=== PATIENT | female | born 1995 | race Caucasian/White ===

== ENCOUNTER 2019-08-07 09:23 | Outpatient (CLI) | payer OTHER ==
[2019-08-07 11:05] LABS: APPEARANCE,URINE SLIGHTLY-CLOUDY; BILIRUBIN,URINE NEGATIVE (NEGATIVE); COLOR,URINE YELLOW; GLUCOSE, URINE NEGATIVE (NEGATIVE); KETONES,URINE NEGATIVE (NEGATIVE); LEUKOCYTE ESTERASE,URINE TRACE (NEGATIVE); NITRITE,URINE NEGATIVE (NEGATIVE); PROTEIN,URINE NEGATIVE (NEGATIVE); URINE SPECIFIC GRAVITY 1.016; UROBILINOGEN,URINE NEGATIVE mg/dL (<2.0)
[2019-08-07 11:15] LABS: URINE AMPHETAMINES SCREEN NEGATIVE; URINE BARBITURATES SCREEN NEGATIVE; URINE BENZODIAZEPINES SCREEN NEGATIVE; URINE COCAINE SCREEN NEGATIVE; URINE MARIJUANA (THC) SCREEN NEGATIVE; URINE METHADONE SCREEN NEGATIVE; URINE PHENCYCLIDINE SCREEN NEGATIVE
--- NOTE | 2019-08-07 11:48 | RADIOLOGY REPORT (SQ) ---
EXAM DESCRIPTION: U/S OB LIMITED IMAGES COMPLETED DATE/TIME: 08/07/2019 11:29 am REASON FOR STUDY: pt fell on abd yesterday COMPARISON: None. TECHNIQUE: Limited transabdominal grayscale ultrasound for evaluation of specific requested obstetri jacqueline parameters. LIMITATIONS: None. FINDINGS: CERVICAL LENGTH: Closed, 3.5 cm in length GRIS: Largest volume pocket 11.5 x 4.9 cm FHR: 140 beats per minute. PRESENTATION: Transverse PLACENTA: Anterior grade 1 ANATOMY: Not assessed OTHER: Estimated gestational age by limited measurements, 23 weeks 0 days, estimated due date 12/04/19 IMPRESSION: LIMITED OBSTETRICAL ULTRASOUND WITH MEASURED PARAMETERS DELINEATED ABOVE. Trimester of : Second trimester - 13 weeks 1 day to 27 weeks 6 days. TECHNICAL DOCUMENTATION: JOB ID: [id number] 2010 [employer]- All Rights Reserved Reading location - IP/workstation name: [email or web address]
== END 2019-08-07 12:13 | disposition home or self-care (01) ==
LOC: LC 09:23
PROVIDERS: ATTEND Obstetrics & Gynecology
DX: O36.8120 Decreased fetal movements, second trimester, not applicable or unspecified (principal); O9A.212 Injury, poisoning and certain other consequences of external causes complicating pregnancy, second trimester; W19.XXXA Unspecified fall, initial encounter; Z3A.22 22 weeks gestation of pregnancy
CPT/HCPCS: 76815; 80307; 81001

== ENCOUNTER 2019-10-16 13:07 | Observation (INO) | payer BC ==
[2019-10-16 13:53] LABS: APPEARANCE,URINE SLIGHTLY-CLOUDY; BILIRUBIN,URINE NEGATIVE (NEGATIVE); COLOR,URINE YELLOW; GLUCOSE, URINE NEGATIVE (NEGATIVE); KETONES,URINE NEGATIVE (NEGATIVE); LEUKOCYTE ESTERASE,URINE SMALL (NEGATIVE); NITRITE,URINE NEGATIVE (NEGATIVE); PROTEIN,URINE 30 mg/dL (NEGATIVE); URINE SPECIFIC GRAVITY 1.019; UROBILINOGEN,URINE NEGATIVE mg/dL (<2.0)
[2019-10-16 13:54] LABS: BACTERIA (WET MOUNT) 3+ BACTERIA SEEN; EPITHELIALS (WET MOUNT) 3+ EPITHELIALS SEEN; RBCS (WET MOUNT) FEW RBCS SEEN; T.VAGINALIS (WET MOUNT) NO TRICHOMONAS SEEN; WBCS (WET MOUNT) 3+ WBCS SEEN; YEAST (WET MOUNT) NO YEAST SEEN
[2019-10-16 14:12] LABS: URINE AMPHETAMINES SCREEN NEGATIVE; URINE BARBITURATES SCREEN NEGATIVE; URINE BENZODIAZEPINES SCREEN NEGATIVE; URINE COCAINE SCREEN NEGATIVE; URINE MARIJUANA (THC) SCREEN NEGATIVE; URINE METHADONE SCREEN NEGATIVE; URINE PHENCYCLIDINE SCREEN NEGATIVE
[2019-10-16] MEDS ORDERED: RINGERS SOLUTION,LACTATED 1,000 ML IV PRN ×2 (14:37→17:54)
[2019-10-16 15:22] LABS: CHLAM PCR NOT DETECTED (NOT DETECT)
[2019-10-16] MEDS ORDERED: BETAMET ACET/BETAMET NA INJ 6 MG/1 ML ONE (17:16)
[2019-10-16] MEDS ORDERED: BETAMET ACET/BETAMET NA INJ 6 MG/1 ML IM ONE (17:30)
[2019-10-16] MEDS ORDERED: HYDROXYZINE PAMOATE 50 MG CAPSULE PO PRN (17:30)
[2019-10-16] MEDS ORDERED: DEXTROSE 5%-LACTATED RINGERS 1,000 ML IV PRN (17:37)
[2019-10-16] MEDS ORDERED: NIFEDIPINE 30 MG TAB.ER.24 PO ONE ×2 (17:59→18:00)
--- NOTE | 2019-10-16 18:17 | Non Stress Test Report ---
Non Stress Test Datetime Report Generated by CPN: 10/16/2019 18:17 DEMOGRAPHIC EGA NST: 32.0 INDICATION Indication for Study (NST) Other: 23 hour obs r/o PTL MONITORING Monitor Explained: Monitor Explained; Test Explained; Patient Verbalized Understanding Time on Monitor: 10/16/2019 17:10 Time off Monitor: 10/16/2019 17:30 NST Duration: 20 NST INTERVENTIONS NST Interventions: PO Hydration Physician Notified NST: Dr Ramesh BABY A: [id number] BABY A Movement : Present Contraction Frequency : 4-6 FHR Baseline : 145 Accelerations : 15X15 Decelerations : None Variability : Moderate 6-25bpm NST Review: Meets Criteria for Reactive NST NST Review and Verified By : B Baidy RN NST Results: Reactive NST COMMENTS NST Comments: MD on unit reviewing FHT strip NST REPORT Report Trigger: Send Report
[2019-10-17] MEDS ORDERED: ACETAMINOPHEN 325 MG TABLET PO ONE ×2 (01:18→11:25)
[2019-10-17] MEDS ORDERED: ACETAMINOPHEN 325 MG TABLET ONE ×3 (01:19→11:29)
[2019-10-17] MEDS ORDERED: NIFEDIPINE 10 MG CAPSULE ONE ×2 (03:34→11:29)
[2019-10-17] MEDS ORDERED: NIFEDIPINE 10 MG CAPSULE PO SCH ×2 (03:45→09:00)
[2019-10-17] MEDS: NIFEDIPINE 10 MG CAPSULE PO SCH ×2 (03:47→11:32)
--- NOTE | 2019-10-17 09:50 | Admission Physical ---
Datetime Report Generated by CPN: 10/17/2019 09:50 CURRENT ADMISSION Chief Complaint: Uterine Contractions Admit Impression : , Intrauterine ; Intact Membranes Admit Plan: Initiate Labor Protocol ALLERGIES Medication Allergies: Yes Medication Allergies: codeine (08/07/2019) Latex: No Latex Allergies Environmental Allergies: none OBSTETRICAL HISTORY EDC: 12/11/2019 00:00 : 3 Para: 1 Term: 1 : 0 SAB: 1 IAB: 0 Ectopic: 0 Livin Cesareans: 0 VBACs: 0 Multiple Births: 0 Gestational Diabetes: No Rh Sensitization: No Incompetent Cervix: No HEATHER: No Infertility: No ART Treatment: No Uterine Anomaly: No IUGR: No Hx Previous C/S: No Macrosomia: No Hx Loss/Stillborn: No PIH: No Hx : No Placenta Previa/Abruption: No Depression/PP Depression: No PTL/PROM: Yes Post Hemorrhage: No Current Procedures: Ultrasound Obstetrical History Comments: 2016 10-12 weeks SAB 2017 36.6 weeks male 6# 12 oz G3- current SEE RECORDS Alcohol: No Marijuana : No Cocaine: No Other Illicit Drugs: No Cigarettes: Never Smoker. [id number] MEDICAL HISTORY Diabetes: No Blood Transfusion: No Pulmonary Disease (Asthma, TB): No Breast Disease: No Hypertension: No Bilingual Spanish Inbound Sales Surgery: No Heart Disease: No Hosp/Surgery: Yes Autoimmune Disorder: No Anesthetic Complications: No Kidney Disease: No Abnormal Pap Smear: No Neuro/Epilepsy: No Psychiatric Disorders: No Other Medical Diseases: No Hepatitis/Liver Disease: No Significant Family History: No Varicosities/Phlebitis: No Trauma/Violence : No Thyroid Dysfunction: No Medical History Comments: childbirth, T_A 2008, wisdom teeth 2016, INFECTIOUS HISTORY Gonorrhea: No Genital Herpes: No Chlamydia: No Tuberculosis: No Syphilis: No Hepatitis: No HIV/AIDS Exposure: No Rash or Viral Illness: No HPV: No PHYSICAL EXAM General: Normal HEENT: Normal Neurologic: Normal Thyroid: Normal Heart: Normal Lungs: Normal Breast: Normal Back: Normal Abdomen: Normal Genitourinary Exam: Normal Extremities: Normal DTRs: Normal Pelvic Type: Adequate Vital Signs: Reviewed; Within Normal Limits VAGINAL EXAM Dilatation: 0 Effacement: 50 Station: -3 Contraction Comments: regular contractions every 3 minutes MEMBRANES Membranes: Intact FETUS A EGA: 32.0 Monitoring: External US FHR- Baseline: 130 Variability: Moderate 6-25bpm Accelerations: 15X15 Decelerations: None FHR Category: Category I Presentation: Vertex Admit Comment: at 32.1 wks EGA with contractions: threatened labor -Admit to LDR for observation and treatment -VS Q 4 hrs while awake -OUt of bed at kris -Regular diet -s/p 1 liter LR IV in triage, bolus one additional liter over next 2 hrs -Betamethasone 12mg IM now and repeat in 24 hrs -No cervical change presently so will wait on PCN for GBS prophylaxis -Obtain GBS cultures, G/C probe -Begin nifedipine 30 xl and continue nifedipine 10mg Q 8 hours. Hold for b/p <90 systolic or <50 diastolic _NST BID -COntinuous toco -Hx of one prior at 36.6 PLANS FOR LABOR AND DELIVERY Labor and Delivery: None Pain Management: Natural Feeding Preference: Breast Benefit of Breast Feed Discussed: Yes Circumcision: Yes INFORMED CONSENT Informed Consent Obtained: Vaginal Delivery; Risks, Benefits and Alternatives Discussed Signature: with User ID: Kathy : with User ID: Kathy
--- NOTE | 2019-10-17 10:26 | Non Stress Test Report ---
Non Stress Test Datetime Report Generated by CPN: 10/17/2019 10:25 DEMOGRAPHIC EGA NST: 32.1 INDICATION Indication for Study (NST) Other: obs pt for ctxs MONITORING Monitor Explained: Monitor Explained; Test Explained; Patient Verbalized Understanding Time on Monitor: 10/17/2019 09:37 Time off Monitor: 10/17/2019 10:06 NST Duration: 29 NST INTERVENTIONS NST Interventions: None Physician Notified NST: Dr Ramesh BABY A Movement : Present Movement : Present Contraction Frequency : rare FHR Baseline : 130 Accelerations : 15X15 Decelerations : None Variability : Moderate 6-25bpm NST Review: Meets Criteria for Reactive NST NST Review: Meets Criteria for Reactive NST NST Review and Verified By : B Baidy RN NST Results: Reactive NST REPORT Report Trigger: Send Report
[2019-10-17] MEDS ORDERED: BETAMET ACET/BETAMET NA INJ 6 MG/1 ML IM ONE (16:00)
[2019-10-17] MEDS ORDERED: BETAMET ACET/BETAMET NA INJ 6 MG/1 ML ONE (16:40)
== END 2019-10-17 17:28 | disposition home or self-care (01) ==
LOC: LC 13:07 → LR 17:34
PROVIDERS: ADMIT Obstetrics & Gynecology; ATTEND Obstetrics & Gynecology
DX: O60.03 Preterm labor without delivery, third trimester (principal); Z3A.32 32 weeks gestation of pregnancy
CPT/HCPCS: 59025; 96372; 87210; 81001; 87081; 80307; 87491; 87591; 84112; G0378 ×2; J3490; J0702 ×2

== ENCOUNTER 2019-10-22 13:56 | Observation (INO) | payer BC ==
[2019-10-22 14:43] LABS: APPEARANCE,URINE SLIGHTLY-CLOUDY; BILIRUBIN,URINE NEGATIVE (NEGATIVE); COLOR,URINE YELLOW; GLUCOSE, URINE NEGATIVE (NEGATIVE); KETONES,URINE NEGATIVE (NEGATIVE); LEUKOCYTE ESTERASE,URINE SMALL (NEGATIVE); NITRITE,URINE NEGATIVE (NEGATIVE); PROTEIN,URINE NEGATIVE (NEGATIVE); URINE SPECIFIC GRAVITY 1.004; UROBILINOGEN,URINE NEGATIVE mg/dL (<2.0)
[2019-10-22 15:14] LABS: URINE AMPHETAMINES SCREEN NEGATIVE; URINE BARBITURATES SCREEN NEGATIVE; URINE BENZODIAZEPINES SCREEN NEGATIVE; URINE COCAINE SCREEN NEGATIVE; URINE MARIJUANA (THC) SCREEN NEGATIVE; URINE METHADONE SCREEN NEGATIVE; URINE PHENCYCLIDINE SCREEN NEGATIVE
--- NOTE | 2019-10-22 15:16 | RADIOLOGY REPORT (SQ) ---
EXAM DESCRIPTION: U/S OB LIMITED IMAGES COMPLETED DATE/TIME: 10/22/2019 2:53 pm REASON FOR STUDY: contractions COMPARISON: 08/07/2019 TECHNIQUE: Limited transvaginal and transabdominal grayscale ultrasound for evaluation of specific r equested obstetrical parameters. LIMITATIONS: None. FINDINGS: CERVICAL LENGTH: 2.4 cm Closed. GRIS: 16.5 cm. FHR: 175 beats per minute. PRESENTATION: Cephalic. PLACENTA: Not assessed ANATOMY: Not assessed OTHER: Estimated gestational age is 34 weeks 3 days. The placenta is anterior in location. IMPRESSION: LIMITED OBSTETRICAL ULTRASOUND WITH MEASURED PARAMETERS DELINEATED ABOVE. Trimester of : Third trimester - 28 weeks to delivery. TECHNICAL DOCUMENTATION: JOB ID: [id number] 2010 [employer]- All Rights Reserved Reading location - IP/workstation name: [email or web address]
[2019-10-22] MEDS ORDERED: RINGERS SOLUTION,LACTATED 1,000 ML IV PRN (15:30)
[2019-10-22] MEDS ORDERED: RINGERS SOLUTION,LACTATED 1,000 ML IV ONE (15:30)
[2019-10-22] MEDS ORDERED: HYDROXYZINE PAMOATE 50 MG CAPSULE PO ONE (15:40)
--- NOTE | 2019-10-22 15:57 | Admission Physical ---
Datetime Report Generated by CPN: 10/22/2019 15:57 CURRENT ADMISSION Chief Complaint: Uterine Contractions Indication for Induction: Not Applicable Admit Impression : , Intrauterine Admit Plan: Initiate Labor Protocol; Observation/Evaluation Admit Plan- Other: hx PTD 36.6 was given steroids x 2 doses 10/16/19 and 10/17/19 c/o contractions for 6 days ALLERGIES Medication Allergies: Yes Medication Allergies: codeine (10/22/2019) Latex: No Latex Allergies Environmental Allergies: none OBSTETRICAL HISTORY EDC: 12/11/2019 00:00 : 3 Para: 1 Term: 1 : 0 SAB: 1 IAB: 0 Ectopic: 0 Livin Cesareans: 0 VBACs: 0 Multiple Births: 0 Gestational Diabetes: No Rh Sensitization: No Incompetent Cervix: No HEATHER: No Infertility: No ART Treatment: No Uterine Anomaly: No IUGR: No Hx Previous C/S: No Macrosomia: No Hx Loss/Stillborn: No PIH: No Hx : No Placenta Previa/Abruption: No Depression/PP Depression: No PTL/PROM: Yes Post Hemorrhage: No Current Procedures: Ultrasound Obstetrical History Comments: 2016 10-12 weeks SAB G2- 2017 36.6 weeks male 6# 12 oz G3- current SEE RECORDS Alcohol: No Marijuana : No Cocaine: No Other Illicit Drugs: No Cigarettes: Never Smoker. 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 Heart Disease: No Hosp/Surgery: Yes Autoimmune Disorder: No Anesthetic Complications: No Kidney Disease: No Abnormal Pap Smear: No Neuro/Epilepsy: No Psychiatric Disorders: No Other Medical Diseases: No Hepatitis/Liver Disease: No Significant Family History: No Varicosities/Phlebitis: No Trauma/Violence : No Thyroid Dysfunction: No Medical History Comments: childbirth, T_A 2008, wisdom teeth 2016, INFECTIOUS HISTORY Gonorrhea: No Genital Herpes: No Chlamydia: No Tuberculosis: No Syphilis: No Hepatitis: No HIV/AIDS Exposure: No Rash or Viral Illness: No HPV: No PHYSICAL EXAM General: Normal HEENT: Deferred Neurologic: Normal Thyroid: Deferred Heart: Normal Lungs: Normal Breast: Deferred Back: Deferred Abdomen: Normal Genitourinary Exam: Normal Extremities: Normal DTRs: Deferred Pelvic Type: Adequate Vital Signs: Reviewed VAGINAL EXAM Dilatation: 2 Effacement: 50 Station: -2 Contraction Comments: regular contractions every 3 minutes MEMBRANES Membranes: Intact FETUS A EGA: 32.6 Monitoring: External US FHR- Baseline: 135 Variability: Moderate 6-25bpm Accelerations: 15X15 Decelerations: None FHR Category: Category I Presentation: Vertex Admit Comment: at 32.6 wks EGA with contractions: threatened labor -Admit to LDR for observation and treatment -VS Q 4 hrs while awake -OUt of bed at kris -Regular diet -s/p 1 liter LR IV in triage, bolus one additional liter over next 2 hrs -Betamethasone complete from last visit Now 2 cm. Was admitted last weekend and was closed.GC/CT negative last wk. GBS negative. Wet prep negative. -Magnesium for neuroprotection _NST BID -COntinuous toco -Hx of one prior at 36.6 PLANS FOR LABOR AND DELIVERY Labor and Delivery: None Pain Management: Natural Feeding Preference: Breast Benefit of Breast Feed Discussed: Yes Circumcision: Yes INFORMED CONSENT Informed Consent Obtained: Vaginal Delivery; Risks, Benefits and Alternatives Discussed Assignment: Meche Gregg MD Signature: with User ID: [email or web address] : with User ID: [email or web address]
[2019-10-22] MEDS ORDERED: MAGNESIUM SULFATE 20 GM/500 ML RTUINJ IV ONE (15:58)
[2019-10-22] MEDS ORDERED: MAGNESIUM SULFATE 4 GM/100 ML RTUPB IV ONE ×2 (15:58→16:25)
[2019-10-22 16:10] LABS: ABSOLUTE LYMPHOCYTES (AUTO) 3.1 10^3/uL (0.5-4.7); ABSOLUTE MONOCYTES (AUTO) 0.9 10^3/uL (0.1-1.4); BASOPHILS % (AUTO) 0.3 % (0-2); EOSINOPHILS % (AUTO) 0.3 % (0-6); HEMATOCRIT 34.2 % (36.0-47.0); HEMOGLOBIN 11.2 g/dL (12.0-15.5); LYMPHOCYTES % (AUTO) 25.8 % (13-45); MEAN CORPUSCULAR HEMOGLOBIN 29.6 pg (27.0-33.4); MEAN CORPUSCULAR HGB CONC 32.9 g/dL (32.0-36.0); MEAN CORPUSCULAR VOLUME 90 fl (80-97); MONOCYTES % (AUTO) 7.6 % (3-13); PLATELET COUNT 281 10^3/uL (150-450); RED CELL DISTRIBUTION WIDTH 13.4 % (11.5-14.0); TOTAL CELLS COUNTED % (AUTO) 100 %; WHITE BLOOD COUNT 12.2 10^3/uL (4.0-10.5)
[2019-10-22] MEDS ORDERED: MAGNESIUM SULFATE 20 GM/500 ML RTUINJ IV PRN (16:25)
[2019-10-22] MEDS ORDERED: HYDROXYZINE PAMOATE 50 MG CAPSULE ONE (20:03)
[2019-10-22] MEDS ORDERED: ACETAMINOPHEN 325 MG TABLET ONE (20:03)
[2019-10-23] MEDS ORDERED: MAGNESIUM SULFATE 20 GM/500 ML RTUINJ IV ONE (02:47)
[2019-10-23] MEDS ORDERED: ACETAMINOPHEN 325 MG TABLET PO ONE (15:16)
[2019-10-23] MEDS ORDERED: ACETAMINOPHEN 325 MG TABLET ONE (15:23)
--- NOTE | 2019-10-23 15:24 | PDOC PROGRESS REPORT ---
Subjective Progress Note for:: 10/23/19 Reason For Visit: pre term labor Physical Exam - Physical Exam Vital Signs: Intake & Output 10/22/19 10/23/19 10/24/19 06:59 06:59 06:59 Weight 55.2 kg General appearance: PRESENT: no acute distress Result Laboratory Results: 10/22/19 15:55 10/22/19 10/22/19 15:55 15:55 WBC 12.2 H RBC 3.80 Hgb 11.2 L Hct 34.2 L MCV 90 MCH 29.6 MCHC 32.9 RDW 13.4 Plt Count 281 Seg Neutrophils % 66.0 Blood Type A POSITIVE Antibody Screen NEGATIVE Impressions: Obstetrics Ultrasound 10/22/19 14:28 IMPRESSION: LIMITED OBSTETRICAL ULTRASOUND WITH MEASURED PARAMETERS DELINEATED ABOVE. Trimester of : Third trimester - 28 weeks to delivery. Assessment & Plan - Diagnosis (1) uterine contractions Is this a current diagnosis for this admission?: Yes - Time Time Spent with patient: Less than 15 minutes Level of Care: MEDICAL Medications reviewed and adjusted accordingly: Yes Anticipated discharge: Home Anticipated DC Timeframe: within 48 hours - Plan Summary Plan Summary: d/c mag after [address] on procardia
[2019-10-23] MEDS ORDERED: NIFEDIPINE 10 MG CAPSULE ONE (17:05)
[2019-10-23] MEDS ORDERED: NIFEDIPINE 10 MG CAPSULE PO SCH (18:00)
--- NOTE | 2019-10-24 07:12 | PDOC DISCHARGE SUMMARY ---
Impression - Admit/DC Date/PCP Admission Date/Primary Care Provider: 10/22/19 15:36 ABDON REYES MD Discharge Date: 10/24/19 - Discharge Diagnosis (1) uterine contractions Is this a current diagnosis for this admission?: Yes - Additional Information Resuscitation Status: Full Code Discharge Diet: As Tolerated Discharge Activity: Balance Activity w/Rest, Pelvic Rest Referrals: ABDON REYES MD [Primary Care Provider] - Home Medications: Vit,Calc76/Iron/Folic [Prenatabs Rx Tablet] 1 tab PO DAILY 08/07/19 History of Present Illiness History of Present Illness: AUBRIE REYES is a 24 year old female no cervical change Hospital Course Hospital Course: 24 hours mag and no crvical change Physical Exam - Physical Exam Vital Signs: Intake & Output 10/23/19 10/24/19 10/25/19 06:59 06:59 06:59 Weight 55.2 kg General appearance: PRESENT: no acute distress - no cervical change Results Laboratory Results: WBC 12.2 10^3/uL (4.0-10.5) H 10/22/19 15:55 RBC 3.80 10^6/uL (3.72-5.28) 10/22/19 15:55 Hgb 11.2 g/dL (12.0-15.5) L 10/22/19 15:55 Hct 34.2 % (36.0-47.0) L 10/22/19 15:55 MCV 90 fl (80-97) 10/22/19 15:55 MCH 29.6 pg (27.0-33.4) 10/22/19 15:55 MCHC 32.9 g/dL (32.0-36.0) 10/22/19 15:55 RDW 13.4 % (11.5-14.0) 10/22/19 15:55 Plt Count 281 10^3/uL (150-450) 10/22/19 15:55 Lymph % (Auto) 25.8 % (13-45) 10/22/19 15:55 Steele % (Auto) 7.6 % (3-13) 10/22/19 15:55 Eos % (Auto) 0.3 % (0-6) 10/22/19 15:55 Baso % (Auto) 0.3 % (0-2) 10/22/19 15:55 Absolute Neuts (auto) 8.0 10^3/uL (1.7-8.2) 10/22/19 15:55 Absolute Lymphs (auto) 3.1 10^3/uL (0.5-4.7) 10/22/19 15:55 Absolute Monos (auto) 0.9 10^3/uL (0.1-1.4) 10/22/19 15:55 Absolute Eos (auto) 0.0 10^3/uL (0.0-0.6) 10/22/19 15:55 Absolute Basos (auto) 0.0 10^3/uL (0.0-0.2) 10/22/19 15:55 Seg Neutrophils % 66.0 % (42-78) 10/22/19 15:55 Urine Color YELLOW 10/22/19 14:09 Urine Appearance SLIGHTLY-CLOUDY 10/22/19 14:09 Urine pH 7.0 (5.0-9.0) 10/22/19 14:09 Ur Specific [place] 1.004 10/22/19 14:09 Urine Protein NEGATIVE mg/dL (NEGATIVE) 10/22/19 14:09 Urine Glucose (UA) NEGATIVE mg/dL (NEGATIVE) 10/22/19 14:09 Urine Ketones NEGATIVE mg/dL (NEGATIVE) 10/22/19 14:09 Urine Blood NEGATIVE (NEGATIVE) 10/22/19 14:09 Urine Nitrite NEGATIVE (NEGATIVE) 10/22/19 14:09 Urine Bilirubin NEGATIVE (NEGATIVE) 10/22/19 14:09 Urine Urobilinogen NEGATIVE mg/dL (<2.0) 10/22/19 14:09 Ur Leukocyte Esterase SMALL (NEGATIVE) H 10/22/19 14:09 Urine WBC (Auto) 3 /HPF 10/22/19 14:09 Urine RBC (Auto) 0 /HPF 10/22/19 14:09 Urine Bacteria (Auto) 1+ /HPF 10/22/19 14:09 Squamous Epi Cells Auto 6 /HPF 10/22/19 14:09 Urine Mucus (Auto) RARE /LPF 10/22/19 14:09 Urine Ascorbic Acid NEGATIVE (NEGATIVE) 10/22/19 14:09 Membranes Rupture NEGATIVE (NEGATIVE) 10/22/19 15:09 Urine Opiates Screen NEGATIVE 10/22/19 14:09 Urine Methadone Screen NEGATIVE 10/22/19 14:09 Ur Barbiturates Screen NEGATIVE 10/22/19 14:09 Ur Phencyclidine Scrn NEGATIVE 10/22/19 14:09 Ur Amphetamines Screen NEGATIVE 10/22/19 14:09 U Benzodiazepines Scrn NEGATIVE 10/22/19 14:09 Urine Cocaine Screen NEGATIVE 10/22/19 14:09 U Marijuana (THC) Screen NEGATIVE 10/22/19 14:09 Blood Type A POSITIVE 10/22/19 15:55 Antibody Screen NEGATIVE 10/22/19 15:55 Impressions: Obstetrics Ultrasound 10/22/19 14:28 IMPRESSION: LIMITED OBSTETRICAL ULTRASOUND WITH MEASURED PARAMETERS DELINEATED ABOVE. Trimester of : Third trimester - 28 weeks to delivery. Plan Plan of Treatment: discharge follow up on friday in office Stroke Is this a Stroke Patient?: No Acute Heart Failure - Is this a Heart Failure Patient?: No
== END 2019-10-23 18:56 | disposition home or self-care (01) ==
LOC: LC 13:56 → LR 15:36
PROVIDERS: ADMIT Student in an Organized Health Care Education/Training Program; ATTEND Student in an Organized Health Care Education/Training Program
DX: O60.03 Preterm labor without delivery, third trimester (principal); O09.213 Supervision of pregnancy with history of pre-term labor, third trimester; Z3A.32 32 weeks gestation of pregnancy; Z79.899 Other long term (current) drug therapy
CPT/HCPCS: 59899; 94760; 86900; 86901; 36415; 86850; 85025; 86592; 81001; 80307; 84112; 76815; G0378 ×2; C1758; J3475 ×3; J3490

== ENCOUNTER 2019-11-05 19:42 | Observation (INO) | payer BC ==
[2019-11-05 20:26] LABS: APPEARANCE,URINE SLIGHTLY-CLOUDY; BILIRUBIN,URINE NEGATIVE (NEGATIVE); COLOR,URINE YELLOW; GLUCOSE, URINE NEGATIVE (NEGATIVE); KETONES,URINE 20 mg/dL (NEGATIVE); LEUKOCYTE ESTERASE,URINE TRACE (NEGATIVE); NITRITE,URINE NEGATIVE (NEGATIVE); PROTEIN,URINE NEGATIVE (NEGATIVE); URINE SPECIFIC GRAVITY 1.014; UROBILINOGEN,URINE NEGATIVE mg/dL (<2.0)
[2019-11-05 20:41] LABS: URINE AMPHETAMINES SCREEN NEGATIVE; URINE BARBITURATES SCREEN NEGATIVE; URINE BENZODIAZEPINES SCREEN NEGATIVE; URINE COCAINE SCREEN NEGATIVE; URINE MARIJUANA (THC) SCREEN NEGATIVE; URINE METHADONE SCREEN NEGATIVE; URINE PHENCYCLIDINE SCREEN NEGATIVE
[2019-11-05 21:12] LABS: T.VAGINALIS (WET MOUNT) NO TRICHOMONAS SEEN
[2019-11-05 21:13] LABS: BACTERIA (WET MOUNT) 4+ BACTERIA SEEN; EPITHELIALS (WET MOUNT) 3+ EPITHELIALS SEEN; RBCS (WET MOUNT) RARE RBCS SEEN; WBCS (WET MOUNT) 4+ WBCS SEEN; YEAST (WET MOUNT) YEAST SEEN
[2019-11-05] MEDS ORDERED: RINGERS SOLUTION,LACTATED 1,000 ML IV ONE ×2 (22:16→23:59)
[2019-11-05] MEDS ORDERED: FLUCONAZOLE 100 MG TABLET PO ONE (22:21)
[2019-11-05] MEDS ORDERED: FLUCONAZOLE 100 MG TABLET ONE (22:35)
[2019-11-05 23:02] LABS: CHLAM PCR NOT DETECTED (NOT DETECT)
[2019-11-05] MEDS ORDERED: RINGERS SOLUTION,LACTATED 1,000 ML IV PRN (23:59)
[2019-11-06] MEDS ORDERED: TERBUTALINE SULFATE INJ/PF 1 MG/1 ML SDV SUBCUT ONE
[2019-11-06] MEDS ORDERED: TERBUTALINE SULFATE INJ/PF 1 MG/1 ML SDV ONE (00:03)
[2019-11-06] MEDS ORDERED: RINGERS SOLUTION,LACTATED 1,000 ML IV PRN (00:06)
--- NOTE | 2019-11-06 00:07 | Admission Physical ---
Datetime Report Generated by CPN: 11/06/2019 00:06 CURRENT ADMISSION Chief Complaint: Uterine Contractions Indication for Induction: Not Applicable Admit Impression : , Intrauterine Admit Plan: Admit to Unit; Initiate Labor Protocol Admit Plan- Other: hx PTD 36.6 was given steroids x 2 doses 10/16/19 and 10/17/19 c/o contractions for 6 days ALLERGIES Medication Allergies: Yes Medication Allergies: codeine (11/05/2019) Latex: No Latex Allergies Environmental Allergies: none OBSTETRICAL HISTORY EDC: 12/11/2019 00:00 : 3 Para: 1 Term: 1 : 0 SAB: 1 IAB: 0 Ectopic: 0 Livin Cesareans: 0 VBACs: 0 Multiple Births: 0 Gestational Diabetes: No Rh Sensitization: No Incompetent Cervix: No HEATHER: No Infertility: No ART Treatment: No Uterine Anomaly: No IUGR: No Hx Previous C/S: No Macrosomia: No Hx Loss/Stillborn: No PIH: No Hx : No Placenta Previa/Abruption: No Depression/PP Depression: No PTL/PROM: Yes Post Hemorrhage: No Current Procedures: Ultrasound Obstetrical History Comments: 2016 10-12 weeks SAB G2- 2017 36.6 weeks male 6# 12 oz has downs G3- current SEE RECORDS Alcohol: No Marijuana : No Cocaine: No Other Illicit Drugs: No Cigarettes: Never Smoker. 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 Heart Disease: No Hosp/Surgery: Yes Autoimmune Disorder: No Anesthetic Complications: No Kidney Disease: No Abnormal Pap Smear: No Neuro/Epilepsy: No Psychiatric Disorders: No Other Medical Diseases: No Hepatitis/Liver Disease: No Significant Family History: No Varicosities/Phlebitis: No Trauma/Violence : No Thyroid Dysfunction: No Medical History Comments: childbirth, T_A 2008, wisdom teeth 2016, INFECTIOUS HISTORY Gonorrhea: No Genital Herpes: No Chlamydia: No Tuberculosis: No Syphilis: No Hepatitis: No HIV/AIDS Exposure: No Rash or Viral Illness: No HPV: No PHYSICAL EXAM General: Normal HEENT: Normal Neurologic: Normal Thyroid: Deferred Heart: Normal Lungs: Normal Breast: Deferred Back: Normal Abdomen: Normal Genitourinary Exam: Normal Extremities: Normal DTRs: Normal Pelvic Type: Adequate Vital Signs: Reviewed VAGINAL EXAM Dilatation: 2 Effacement: 60 Station: -1 Contraction Comments: q 2-4 MEMBRANES Membranes: Intact FETUS A EGA: 35.0 Monitoring: External US FHR- Baseline: 120 Variability: Moderate 6-25bpm Accelerations: 15X15 Decelerations: None FHR Category: Category I Presentation: Vertex Admit Comment: 24yo at 35+0ega that was admitted on 10/15 and 10/16 for steroids and PTL then again on 10/21 due to cervical change to 2cm from closed. Now with regular uterine ctx again and cvx 3cm. Artem give terb. GBS negative. Admit for observation. IVF. GC/CT neg. Diflucan given for yeast infection. prior 36.6ega delivery. PLANS FOR LABOR AND DELIVERY Labor and Delivery: None Pain Management: Natural Feeding Preference: Breast Benefit of Breast Feed Discussed: Yes Circumcision: Yes INFORMED CONSENT Informed Consent Obtained: Vaginal Delivery; Risks, Benefits and Alternatives Discussed Assignment: Meche Gregg MD Signature: with User ID: Jose : with User ID: Jose
[2019-11-06 00:48] LABS: ABSOLUTE BASOPHILS # (AUTO) 0.1 10^3/uL (0.0-0.2); ABSOLUTE LYMPHOCYTES (AUTO) 4.3 10^3/uL (0.5-4.7); ABSOLUTE MONOCYTES (AUTO) 0.9 10^3/uL (0.1-1.4); ABSOLUTE NEUT (AUTO) 9.1 10^3/uL (1.7-8.2); BASOPHILS % (AUTO) 0.3 % (0-2); EOSINOPHILS % (AUTO) 0.3 % (0-6); HEMATOCRIT 36.7 % (36.0-47.0); HEMOGLOBIN 12.6 g/dL (12.0-15.5); LYMPHOCYTES % (AUTO) 29.7 % (13-45); MEAN CORPUSCULAR HEMOGLOBIN 30.9 pg (27.0-33.4); MEAN CORPUSCULAR HGB CONC 34.3 g/dL (32.0-36.0); MEAN CORPUSCULAR VOLUME 90 fl (80-97); MONOCYTES % (AUTO) 6.5 % (3-13); PLATELET COUNT 249 10^3/uL (150-450); RED BLOOD COUNT 4.07 10^6/uL (3.72-5.28); SEGMENTED NEUTROPHILS % (AUTO) 63.2 % (42-78); TOTAL CELLS COUNTED % (AUTO) 100 %; WHITE BLOOD COUNT 14.4 10^3/uL (4.0-10.5)
--- NOTE | 2019-11-06 08:51 | PDOC DISCHARGE SUMMARY ---
Impression - Admit/DC Date/PCP Admission Date/Primary Care Provider: 11/06/19 00:02 ABDON REYES MD Discharge Date: 11/06/19 - Assessment Summary: The patient was watched overnight and has not gone into labor. We will let her go home to rest at this point. - Additional Information Resuscitation Status: Full Code Discharge Diet: As Tolerated Discharge Activity: Activity As Tolerated Referrals: ABDON REYES MD [Primary Care Provider] - Home Medications: Vit,Calc76/Iron/Folic [Prenatabs Rx Tablet] 1 tab PO DAILY 08/07/19 History of Present Illiness History of Present Illness: AUBRIE REYES is a 24 year old female Physical Exam - Physical Exam Vital Signs: Intake & Output 11/05/19 11/06/19 11/07/19 06:59 06:59 06:59 Weight 65 kg Results Laboratory Results: WBC 14.4 10^3/uL (4.0-10.5) H 11/06/19 00:34 RBC 4.07 10^6/uL (3.72-5.28) 11/06/19 00:34 Hgb 12.6 g/dL (12.0-15.5) 11/06/19 00:34 Hct 36.7 % (36.0-47.0) 11/06/19 00:34 MCV 90 fl (80-97) 11/06/19 00:34 MCH 30.9 pg (27.0-33.4) 11/06/19 00:34 MCHC 34.3 g/dL (32.0-36.0) 11/06/19 00:34 RDW 15.0 % (11.5-14.0) H 11/06/19 00:34 Plt Count 249 10^3/uL (150-450) 11/06/19 00:34 Lymph % (Auto) 29.7 % (13-45) 11/06/19 00:34 [place] % (Auto) 6.5 % (3-13) 11/06/19 00:34 Eos % (Auto) 0.3 % (0-6) 11/06/19 00:34 Baso % (Auto) 0.3 % (0-2) 11/06/19 00:34 Absolute Neuts (auto) 9.1 10^3/uL (1.7-8.2) H 11/06/19 00:34 Absolute Lymphs (auto) 4.3 10^3/uL (0.5-4.7) 11/06/19 00:34 Absolute Monos (auto) 0.9 10^3/uL (0.1-1.4) 11/06/19 00:34 Absolute Eos (auto) 0.0 10^3/uL (0.0-0.6) 11/06/19 00:34 Absolute Basos (auto) 0.1 10^3/uL (0.0-0.2) 11/06/19 00:34 Seg Neutrophils % 63.2 % (42-78) 11/06/19 00:34 Urine Color YELLOW 11/05/19 19:56 Urine Appearance SLIGHTLY-CLOUDY 11/05/19 19:56 Urine pH 6.0 (5.0-9.0) 11/05/19 19:56 Ur Specific [place] 1.014 11/05/19 19:56 Urine Protein NEGATIVE mg/dL (NEGATIVE) 11/05/19 19:56 Urine Glucose (UA) NEGATIVE mg/dL (NEGATIVE) 11/05/19 19:56 Urine Ketones 20 mg/dL (NEGATIVE) H 11/05/19 19:56 Urine Blood NEGATIVE (NEGATIVE) 11/05/19 19:56 Urine Nitrite NEGATIVE (NEGATIVE) 11/05/19 19:56 Urine Bilirubin NEGATIVE (NEGATIVE) 11/05/19 19:56 Urine Urobilinogen NEGATIVE mg/dL (<2.0) 11/05/19 19:56 Ur Leukocyte Esterase TRACE (NEGATIVE) H 11/05/19 19:56 Urine WBC (Auto) 4 /HPF 11/05/19 19:56 Urine RBC (Auto) 1 /HPF 11/05/19 19:56 Urine Bacteria (Auto) TRACE /HPF 11/05/19 19:56 Squamous Epi Cells Auto 3 /HPF 11/05/19 19:56 Urine Mucus (Auto) OCC /LPF 11/05/19 19:56 Urine Ascorbic Acid 40 (NEGATIVE) H 11/05/19 19:56 Membranes Rupture NEGATIVE (NEGATIVE) 11/06/19 07:21 Epi Cells (Wet Prep) 3+ EPITHELIALS SEEN 11/05/19 20:54 Bacteria (Wet Prep) 4+ BACTERIA SEEN 11/05/19 20:54 Trichomonas (Wet Prep) NO TRICHOMONAS SEEN 11/05/19 20:54 Vaginal WBC 4+ WBCS SEEN 11/05/19 20:54 Vaginal RBC RARE RBCS SEEN 11/05/19 20:54 Vaginal Yeast YEAST SEEN 11/05/19 20:54 Urine Opiates Screen NEGATIVE 11/05/19 19:56 Urine Methadone Screen NEGATIVE 11/05/19 19:56 Ur Barbiturates Screen NEGATIVE 11/05/19 19:56 Ur Phencyclidine Scrn NEGATIVE 11/05/19 19:56 Ur Amphetamines Screen NEGATIVE 11/05/19 19:56 U Benzodiazepines Scrn NEGATIVE 11/05/19 19:56 Urine Cocaine Screen NEGATIVE 11/05/19 19:56 U Marijuana (THC) Screen NEGATIVE 11/05/19 19:56 Chlamydia DNA (PCR) NOT DETECTED (NOT DETECT) 11/05/19 20:53 N.gonorrhoeae DNA (PCR) NOT DETECTED (NOT DETECT) 11/05/19 20:53 Blood Type A POSITIVE 11/06/19 00:34 Antibody Screen NEGATIVE 11/06/19 00:34 Stroke Is this a Stroke Patient?: No Acute Heart Failure - Is this a Heart Failure Patient?: No
== END 2019-11-06 08:53 | disposition home or self-care (01) ==
LOC: LC 19:42 → LR 23:59 → INTOOBSV 23:59 → UNDOADMOB 11-06 00:02 → LR 11-06 00:02 → UNDODISOB 11-06 08:53
PROVIDERS: ADMIT Student in an Organized Health Care Education/Training Program; ATTEND Student in an Organized Health Care Education/Training Program
DX: O60.03 Preterm labor without delivery, third trimester (principal); O98.813 Other maternal infectious and parasitic diseases complicating pregnancy, third trimester; B37.9 Candidiasis, unspecified; O09.213 Supervision of pregnancy with history of pre-term labor, third trimester; Z3A.35 35 weeks gestation of pregnancy
CPT/HCPCS: 59025; 86900; 86901; 36415; 87210; 86850; 85025; 86592; 81001; 80307; 87491; 87591; 84112; J3105

== ENCOUNTER 2019-11-15 14:30 | Outpatient (CLI) | payer BC ==
[2019-11-15 15:12] LABS: URINE AMPHETAMINES SCREEN NEGATIVE; URINE BARBITURATES SCREEN NEGATIVE; URINE BENZODIAZEPINES SCREEN NEGATIVE; URINE COCAINE SCREEN NEGATIVE; URINE MARIJUANA (THC) SCREEN NEGATIVE; URINE METHADONE SCREEN NEGATIVE; URINE PHENCYCLIDINE SCREEN NEGATIVE
== END 2019-11-15 16:01 | disposition home or self-care (01) ==
LOC: LC 14:30
PROVIDERS: ATTEND Obstetrics & Gynecology Gynecology
DX: Z34.83 Encounter for supervision of other normal pregnancy, third trimester (principal); Z3A.36 36 weeks gestation of pregnancy; Z88.6 Allergy status to analgesic agent
CPT/HCPCS: 59025; 80307; 84112

== ENCOUNTER 2019-11-30 09:29 | Inpatient (IN) | payer BC ==
--- NOTE | 2019-11-30 09:33 | Non Stress Test Report ---
Non Stress Test Datetime Report Generated by CPN: 11/30/2019 09:33 DEMOGRAPHIC Test Number: 3 EGA NST: 36.2 VITAL SIGNS Temperature - NST: 98.3 Pulse - NST: 84 RESP - NST: 15 NBPSYS NST: 115 NBPDIA NST: 70 MONITORING Monitor Explained: Monitor Explained; Test Explained; Patient Verbalized Understanding Time on Monitor: 11/15/2019 14:48 Time off Monitor: 11/15/2019 16:00 NST Duration: 72 NST INTERVENTIONS NST Interventions: PO Hydration; Reposition Patient Physician Notified NST: Dr. Zadii BABY A: [id number] BABY A Movement : Present Contraction Frequency : irregular FHR Baseline : 145 Accelerations : 15X15 Decelerations : None Variability : Moderate 6-25bpm NST Review: Meets Criteria for Reactive NST NST Review and Verified By : JOSÉ MIGUEL Hernandez Results: Reactive NST REPORT Report Trigger: Send Report
[2019-11-30 10:01] LABS: APPEARANCE,URINE SLIGHTLY-CLOUDY; BILIRUBIN,URINE NEGATIVE (NEGATIVE); COLOR,URINE YELLOW; GLUCOSE, URINE NEGATIVE (NEGATIVE); KETONES,URINE NEGATIVE (NEGATIVE); LEUKOCYTE ESTERASE,URINE SMALL (NEGATIVE); NITRITE,URINE NEGATIVE (NEGATIVE); PROTEIN,URINE NEGATIVE (NEGATIVE); URINE SPECIFIC GRAVITY 1.015; UROBILINOGEN,URINE NEGATIVE mg/dL (<2.0)
[2019-11-30 10:22] LABS: ABSOLUTE BASOPHILS # (AUTO) 0.1 10^3/uL (0.0-0.2); ABSOLUTE LYMPHOCYTES (AUTO) 3.9 10^3/uL (0.5-4.7); ABSOLUTE MONOCYTES (AUTO) 0.9 10^3/uL (0.1-1.4); ABSOLUTE NEUT (AUTO) 7.1 10^3/uL (1.7-8.2); BASOPHILS % (AUTO) 0.8 % (0-2); EOSINOPHILS % (AUTO) 0.2 % (0-6); HEMATOCRIT 37.5 % (36.0-47.0); HEMOGLOBIN 12.5 g/dL (12.0-15.5); LYMPHOCYTES % (AUTO) 32.3 % (13-45); MEAN CORPUSCULAR HEMOGLOBIN 29.7 pg (27.0-33.4); MEAN CORPUSCULAR HGB CONC 33.5 g/dL (32.0-36.0); MEAN CORPUSCULAR VOLUME 89 fl (80-97); MONOCYTES % (AUTO) 7.7 % (3-13); PLATELET COUNT 271 10^3/uL (150-450); RED BLOOD COUNT 4.22 10^6/uL (3.72-5.28); RED CELL DISTRIBUTION WIDTH 15.2 % (11.5-14.0); TOTAL CELLS COUNTED % (AUTO) 100 %; WHITE BLOOD COUNT 12.1 10^3/uL (4.0-10.5)
[2019-11-30 10:28] LABS: URINE AMPHETAMINES SCREEN NEGATIVE; URINE BARBITURATES SCREEN NEGATIVE; URINE BENZODIAZEPINES SCREEN NEGATIVE; URINE COCAINE SCREEN NEGATIVE; URINE MARIJUANA (THC) SCREEN NEGATIVE; URINE METHADONE SCREEN NEGATIVE; URINE PHENCYCLIDINE SCREEN NEGATIVE
[2019-11-30] MEDS ORDERED: MISOPROSTOL 0.2 MG TABLET ONE (10:28)
[2019-11-30] MEDS ORDERED: LIDOCAINE 1% INJ-PF (10 MG/ML) 30 ML SDV ONE (10:28)
[2019-11-30] MEDS ORDERED: OXYTOCIN 10 UNIT/ML VIAL ONE (10:28)
[2019-11-30] MEDS ORDERED: OXYTOCIN/0.9 % SODIUM CHLORIDE 30 UNIT/500 ML RTUINJ ONE (10:29)
[2019-11-30] MEDS ORDERED: ZOLPIDEM TARTRATE 5 MG TABLET PO PRN (10:53)
[2019-11-30] MEDS ORDERED: PSEUDOEPHEDRINE HCL 30 MG TABLET PO PRN (10:53)
[2019-11-30] MEDS ORDERED: DIBUCAINE 1% OINTMENT 28 GM TP PRN (10:53)
[2019-11-30] MEDS ORDERED: PROMETHAZINE HCL INJ 25 MG/1 ML VIAL IV PRN (10:53)
[2019-11-30] MEDS ORDERED: DIPH/PERTUSS(ACELL)/TETANUS VAC/PF 0.5 ML SYR (>=10YO) IM PRN (10:53)
[2019-11-30] MEDS ORDERED: PROMETHAZINE HCL 25 MG SUPP.RECT PR PRN (10:53)
[2019-11-30] MEDS ORDERED: GLYCERIN/WITCH HAZEL LEAF 1 EACH MED..WIPE TP PRN (10:53)
[2019-11-30] MEDS ORDERED: MAGNESIUM HYDROXIDE SUSP 30 ML UDCUP PO PRN (10:53)
[2019-11-30] MEDS ORDERED: PROMETHAZINE HCL 25 MG TABLET PO PRN (10:53)
[2019-11-30] MEDS ORDERED: BENZOCAINE/MENTHOL AEROSOL SPRAY 56 ML TOP PRN (10:53)
[2019-11-30] MEDS ORDERED: ACETAMINOPHEN 650 MG SUPP.RECT PR PRN (10:53)
[2019-11-30] MEDS ORDERED: MEASLES,MUMPS&RUBELLA VACC/PF 0.5 ML VIAL SUBCUT PRN (10:53)
[2019-11-30] MEDS ORDERED: ACETAMINOPHEN WITH CODEINE #3 TABLET PO PRN ×2 (10:53)
[2019-11-30] MEDS ORDERED: DIPHENHYDRAMINE HCL 25 MG CAPSULE PO PRN (10:53)
[2019-11-30] MEDS ORDERED: NA PHOS,M-B/NA PHOS,DI-BA (ADULT) 133 ML ENEMA PR PRN (10:53)
[2019-11-30] MEDS ORDERED: OXYTOCIN/0.9 % SODIUM CHLORIDE 30 UNIT/500 ML RTUINJ IV PRN (10:53)
[2019-11-30] MEDS ORDERED: OXYCODONE-ACETAMINOPHEN 5-325 MG TABLET PO PRN (10:57)
[2019-11-30] MEDS ORDERED: OXYCODONE-ACETAMINOPHEN 5-325 MG TABLET ONE (11:00)
--- NOTE | 2019-11-30 11:42 | Warning Signs in Babies ---
VOD Warning Signs Datetime Report Generated by [facility]: 11/30/2019 11:41 VOD#608 -Warning Signs in Babies: Viewed with Parent(s)/Family (11/30/2019 11:40:Luis Enrique Mariano RN)
--- NOTE | 2019-11-30 12:46 | Birth Certificate Data ---
Cert Data Datetime Report Generated by MIRANDA: 11/30/2019 12:46 CERTIFICATE DATA 47a. Care: Yes (08/07/2019 09:38:Mirtha Mueller RN) 47b. Date of First Visit: 05/26/2019 00:00 (08/07/2019 09:38:Luis Enrique Mariano RN) 47c. Date of Last Visit: 11/24/2019 00:00 (08/07/2019 09:38:Luis Enrique Mariano RN) 47d. Number of Visits: 9 (08/07/2019 09:38:Luis Enrique Mariano RN) 48a. Number of Prev Live Births: 1 (08/07/2019 09:38:Rena Hansen RN) 48b. Now Livin (08/07/2019 09:38:Rena Hansen RN) 48c. Live Births Now : 0 (08/07/2019 09:38:QS system process) 48d. Date of Last Live : 07/09/2017 00:00 (08/07/2019 09:38:Mirtha Mueller RN) 48e. Losses: 1 (08/07/2019 09:38:Rena Hansen RN) 48f. Date of Last Preg Loss: 03/10/2016 00:00 (08/07/2019 09:38:Luis Enrique Mariano RN) RISK FACTORS IN THIS 49a. Diabetes: No (08/07/2019 09:38:Mirtha Mueller RN) 49b. Hypertension: No (08/07/2019 09:38:Mirtha Mueller RN) 49c. Previous Births: 0 (08/07/2019 09:38:Rena Hansen RN) 49d. Stillborns: No (08/07/2019 09:38:Mirtha Mueller RN) 49d. IUGR: No (08/07/2019 09:38:Mirtha Mueller RN) 49e. Infertility Treatment: No (08/07/2019 09:38:Mirtha Mueller RN) 49f. Previous Cesareans: 0 (08/07/2019 09:38:Rena Hansen RN) Mother's Height 50b. Height Inches: 63 (11/30/2019 10:19:QS system process) Mother's Weight 51a. Pre- Weight (lbs): 105 (08/07/2019 09:38:Mirtha Mueller RN) 51b. Weight at Delivery (lbs): 130 (11/30/2019 10:19:QS system process) 52. Dt Last Normal Menses Began: 03/10/2019 00:00 (08/07/2019 09:38:Luis Enrique Mariano RN) Infections Present/Treated 53a. Gonorrhea: No (08/07/2019 09:38:Mirtha Mueller RN) Results this Hospital Visit : Negative (08/07/2019 09:38:Mirtha Mueller RN) 53b. Syphilis: No (08/07/2019 09:38:Mirtha Mueller RN) Results this Hospital Visit: NONREACTIVE (11/06/2019 00:34:QS system process) 53c. Chlamydia: No (08/07/2019 09:38:Mirtha Mueller RN) Results this Hospital Visit: Negative (08/07/2019 09:38:Mirtha Mueller RN) 53d. Hepatitis B: No (08/07/2019 09:38:Mirtha Mueller RN) Results this Hospital Visit: Negative (08/07/2019 09:38:Mirtha Mueller RN) 53e. Hepatitis C: Negative (08/07/2019 09:38:Mirtha Mueller RN) 53h. Mother Tested for HBsAG: Yes (08/07/2019 09:38:Mirtha Mueller RN) 53i. Date Tested: 05/26/2019 00:00 (08/07/2019 09:38:Mirtha Mueller RN) 53j. Test Result: Negative (08/07/2019 09:38:Mirtha Mueller RN) Obstetric Procedures 54a, b, c. Obstetric Procedures: Ultrasound (08/07/2019 09:38:Mirtha Mueller RN) Cigarette Smoking Cigarette Smoking: Never Smoker. [id number] (08/07/2019 09:38:Mirtha Mueller RN) 55a. 3 Months Before Preg - Ci (08/07/2019 09:38:Luis Enrique Mariano RN) 55a. Packs: 0 (08/07/2019 09:38:Luis Enrique Mariano RN) 55b. 1st Trimester of Preg- Ci (08/07/2019 09:38:Luis Enrique Mariano RN) 55b. Packs: 0 (08/07/2019 09:38:Luis Enrique Mariano RN) 55c. 2nd Trimester of Preg- Ci (08/07/2019 09:38:Luis Enrique Mariano RN) 55c. Packs: 0 (08/07/2019 09:38:Luis Enrique Mariano RN) 55d. 3rd Trimester of Preg- Ci (08/07/2019 09:38:Luis Enrique Mariano RN) 55d. Packs: 0 (08/07/2019 09:38:Luis Enrique Mariano RN) Onset of Labor 56a. PROM >12 Hrs: 2.37 (08/07/2019 09:38:QS system process) 56b. Precipitous Labor <3 Hrs: 1 (08/07/2019 09:38:QS system process) 56c. Prolonged Labor > 20 Hrs: 1 (08/07/2019 09:38:QS system process) 57a. Induction of Labor: N/A (08/07/2019 09:38:Luis Enrique Mariano RN) 57c. Non-Vertex Presentation A: Vertex (08/07/2019 09:38:Luis Enrique Mariano RN) 57d. Steroids - Lung Mat: None (08/07/2019 09:38:Luis Enrique Mariano RN) 57d. Steroids - Lung Mat: Celestone 12mg IM - Dose 2 (10/17/2019 16:44:Mirtha Mueller RN) 57d. Steroids - Lung Mat: Not Applicable (08/07/2019 09:38:Luis Enrique Mariano RN) 57g. Moderate/Heavy Meconium: Clear (08/07/2019 09:38:Luis Enrique Mariano RN) 57h. Intolerance of Labor: N/A (08/07/2019 09:38:Luis Enrique Mariano RN) : N/A (08/07/2019 09:38:Luis Enrique Mariano RN) 57i. Epidural/Spinal Anesthesia: None (08/07/2019 09:38:Luis Enrique Mariano RN) Method of Delivery 58a. Forceps - Unsuccessful A: N/A (08/07/2019 09:38:Luis Enrique Mariano RN) 58b. Vacuum - Unsuccessful A: N/A (08/07/2019 09:38:Luis Enrique Mariano RN) 58c. Presentation at 58c. Presentation at - A : Vertex (08/07/2019 09:38:Luis Enrique Mariano RN) 58c. Presentation at - A : N/A (08/07/2019 09:38:Paradise Goel RN) 58c. Presentation at - A : Cephalic (08/07/2019 09:38:Luis Enrique Mariano RN) Final Route and Method of Del 58d. Baby A Route/Delivery: Vaginal (11/30/2019 10:32:Paradise Goel RN) 58e. Trial of Labor Attempted: No (08/07/2019 09:38:Luis Enrique Mariano RN) 58e. Trial of Labor Attempted A: N/A (08/07/2019 09:38:Luis Enrique Mariano RN) 58e. Trial of Labor Attempted B: N/A (08/07/2019 09:38:Luis Enrique Mariano RN) Maternal Morbidity 59b. 3rd or 4th Degree Lacs: None (08/07/2019 09:38:Mara Sy MD (ANDDO)) Birthweight Baby A: 3408 (08/07/2019 09:38:Luis Enrique Mariano RN) 60a. Pounds : 7 (08/07/2019 09:38:QS system process) 60b. Ounces: 8 (08/07/2019 09:38:QS system process) 61. GA at Delivery Baby A: 38.3 (08/07/2019 09:38:Luis Enrique Mariano RN) : Early Term- 37- 38.6 Weeks (08/07/2019 09:38:QS system process) 62a. 5 Minute Baby A: 10 (08/07/2019 09:38:QS system process)
--- NOTE | 2019-11-30 12:46 | Delivery Summary ---
Del Sum A-C Datetime Report Generated by CPN: 11/30/2019 12:46 DELIVERY PERSONNEL DELIVERY PERSONNEL: [id number] Delivery Doctor:: Mara Sy MD Labor and Delivery Nurse:: Luis Enrique Mariano RNmanager support Nurse:: MANOLO Gorman Nursery Nurse:: JOSÉ MIGUEL Wills Water Safety Instructor/DATA SCIENCE AND IOT MANAGER: Zuly Simmons CNA II MATERNAL INFORMATION Delivery Anesthesia: None Medications After Delivery: Pitocin 30 Units in 500ml NS/D5W Estimated Blood Loss (ml): 100 Delivery QBL: 100 Maternal Complications: Precipitous Labor (<3hrs) LABOR SUMMARY EDC: 12/11/2019 00:00 No. Babies in Womb: 1 Attempted: No Labor Anesthesia: None LABOR INFORMATION Reason for Induction: Not Applicable Onset of Labor: 11/30/2019 09:00 Complete Dilatation: 11/30/2019 10:29 Oxytocin: N/A Group B Beta Strep: 1 NO GROUP B STREPTOCOCCUS RECOVERED Antibiotics # of Doses: 0 Name of Antibiotic Given: N/A Steroids Given: None Reason Steroids Not Administered: Not Applicable MEMBRANES Membranes Rupture Method: Spontaneous Rupture of Membranes: 11/30/2019 08:10 Length of Rupture (hr): 2.37 Amniotic Fluid Color: Clear Amniotic Fluid Amount: Moderate Amniotic Fluid Odor: Normal STAGES OF LABOR Stage 1 hr: 1 Stage 1 min: 29 Stage 2 hr: 0 Stage 2 min: 3 Stage 3 hr: 0 Stage 3 min: 4 Total Time in Labor hr: 1 Total Time in Labor min: 36 VAGINAL DELIVERY Episiotomy: None Laceration #1: None Laceration Extension #1: N/A Laceration Repair: Not Applicable Sponge Count Correct: N/A Sharps Count Correct: N/A CSECTION DELIVERY Primary Indication: N/A Secondary Indication: N/A CSection Incidence: N/A Labor: N/A Elective: N/A CSection Incision: N/A BABY A INFORMATION Delivery Date/Time: 11/30/2019 10:32 Method of Delivery: Vaginal Nurse Controlled Delivery: No Born in Route : No : N/A Forceps: N/A Vacuum Extraction: N/A Shoulder Dystocia : No PRESENTATION/POSITION BABY A Presentation: Cephalic Cephalic Presentation: Vertex Vertex Position: Left Occipital Anterior Breech Presentation: N/A PLACENTA INFORMATION BABY A Placenta Delivery Time : 11/30/2019 10:36 Placenta Method of Delivery: Spontaneous Placenta Status: Delivered SCORES BABY A Heart Rate 1 min: >100 bpm Resp Effort 1 min: Good Cry Reflex Irritability 1 min: Cough or Sneeze or Pulls Away Muscle Tone 1 min: Active Motion Color 1 min: Body Casanova, Extremities Blue Resuscitation Effort 1 min: Tactile Stimulation SCORE 1 MIN: 9 Heart Rate 5 min: >100 bpm Resp Effort 5 min: Good Cry Reflex Irritability 5 min: Cough or Sneeze or Pulls Away Muscle Tone 5 min: Active Motion Color 5 min: Completely Casanova SCORE 5 MIN: 10 INFANT INFORMATION BABY A Gestational Age at Delivery: 38.3 Gestational Status: Early Term- 37- 38.6 Weeks Outcome : Liveborn Infant Condition : Stable Infant Sex: Male IDENTIFICATION BABY A Infant Verification Date/Time: 11/30/2019 10:50 ID Band Number: [id number] Mother's Name Verified: Yes RN Verifying Infant: Shanelle Goel RN Additional Verifying Personnel: Susana Conteh RN WEIGHT/LENGTH BABY A Infant Birthweight (gm): 3408 Infant Weight (lb): 7 Weight (oz): 8 Infant Length (in): 19.75 Length (cm): 50.17 CORD INFORMATION BABY A No. Cord Vessels: 3 Nuchal Cord : N/A Cord Blood Taken: Yes-For Storage (Mom's Blood type +) Suction: None ASSESSMENT BABY A Complications: None Physical Findings at Delivery: Within Normal Limits Respirations: Appears Normal Skin to Skin: No Skin to Skin Time (min): 60 Mixing And Molding Machine Operator/ALS Called : No Care By: Shanelle Goel, RN BABY B INFORMATION : N/A SIGNATURES Signature: with User ID: Doron : I was personally available for consultation and serving as supervising physician for the MLP.
[2019-11-30] MEDS: IBUPROFEN 800 MG TABLET PO SCH ×2 (15:41→21:14)
[2019-11-30] MEDS: DOCUSATE SODIUM 100 MG CAPSULE PO SCH (17:52)
[2019-11-30] MEDS: FERROUS SULFATE 325 MG TABLET PO SCH (17:52)
[2019-11-30] MEDS: FAMOTIDINE 20 MG TABLET PO SCH (21:29)
[2019-12-01] MEDS: IBUPROFEN 800 MG TABLET PO SCH ×2 (05:20→18:15)
[2019-12-01 08:31] LABS: HEMATOCRIT 36.2 % (36.0-47.0); HEMOGLOBIN 12.1 g/dL (12.0-15.5); MEAN CORPUSCULAR HGB CONC 33.4 g/dL (32.0-36.0); MEAN CORPUSCULAR VOLUME 90 fl (80-97); PLATELET COUNT 241 10^3/uL (150-450); RED BLOOD COUNT 4.03 10^6/uL (3.72-5.28); RED CELL DISTRIBUTION WIDTH 15.6 % (11.5-14.0); WHITE BLOOD COUNT 15.3 10^3/uL (4.0-10.5)
[2019-12-01] MEDS: FERROUS SULFATE 325 MG TABLET PO SCH ×2 (09:08→18:13)
[2019-12-01] MEDS: SENNOSIDES/DOCUSATE 8.6-50 MG 1 EACH TABLET PO SCH (09:08)
[2019-12-01] MEDS: FAMOTIDINE 20 MG TABLET PO SCH ×2 (09:08→22:21)
[2019-12-01] MEDS: DOCUSATE SODIUM 100 MG CAPSULE PO SCH ×2 (09:08→18:13)
[2019-12-01] MEDS: PRENATAL VITAMIN W DHA CAPSULE PO SCH (09:08)
[2019-12-01] MEDS ORDERED: (PENDING PHARMACY ID) (Prenatal Vit,Calc76/Iron/Folic [Prenatabs Rx Tablet] 1 TAB) PO SCH (10:00)
--- NOTE | 2019-12-01 14:46 | PDOC PROGRESS REPORT ---
Subjective-OB Progress Note for:: 12/01/19 Subjective: 24yo s/p ppd 1 reports pain well controlled with medication. Voiding and ambulating without difficulty, denies any concerns at this time. Physical Exam (OB) Vital Signs: Temp Pulse Resp BP Pulse Ox 97.8 F 71 16 107/64 97 12/01/19 07:24 12/01/19 07:24 12/01/19 07:24 12/01/19 07:24 12/01/19 07:24 Intake & Output 11/30/19 12/01/19 12/02/19 06:59 06:59 06:59 Intake Total 400 Balance 400 Weight 58.5 kg - General General Appearance: Appears well In distress: None - PIH/Pre-Eclampsia DTR's: 2 + Clonus: Negative Headache: Absent Epigastric Pain: No Visual Changes: No - Maternal Morbidity 59. Maternal Morbidity (serious complications experinced by the mother associated with labor and delivery: None of the above - Episiotomy/Laceration Site Condition: N/A - Lochia Lochia Amount: Scant < 10 ml Lochia Color: Rubra/Red - Abdomen Description: Soft Hernia Present: No Fundal Description: Firm, Midline Fundal Height: u/u - u/2 - Respiratory Respiratory Status: No respiratory distress Chest Status: Nontender - Extremities Upper extremity: Normal inspection Lower extremities: Normal inspection - Neurological Cognition: Normal Orientation: AAOx4 - Psychological Associated symptoms: Normal affect, Normal mood Objective-Diagnostic Laboratory: 12/01/19 07:43 12/01/19 07:43 WBC 15.3 H RBC 4.03 Hgb 12.1 Hct 36.2 MCV 90 MCH 30.0 MCHC 33.4 RDW 15.6 H Plt Count 241 Assessment and Plan(PN) - Assessment and Plan (1) Vaginal delivery Is this a current diagnosis for this admission?: Yes Plan: routine pp care - Time Spent with Patient Time with patient: Less than 15 minutes Medications reviewed and adjusted accordingly: Yes - Disposition Anticipated Discharge Disposition: Home, Self Care Anticipated Discharge Timeframe: within 24 hours
[2019-12-02] MEDS: IBUPROFEN 800 MG TABLET PO SCH ×3 (01:04→10:55)
[2019-12-02 08:48] VITALS: BP 129/73
--- NOTE | 2019-12-02 09:22 | PDOC PROGRESS REPORT ---
Subjective-OB Progress Note for:: 12/02/19 Subjective: Ready for discharge. Physical Exam (OB) Vital Signs: Temp Pulse Resp BP Pulse Ox 97.5 F 72 18 129/73 H 99 12/02/19 08:00 12/02/19 08:00 12/02/19 08:00 12/02/19 08:00 12/02/19 08:00 Intake & Output 12/01/19 12/02/19 12/03/19 06:59 06:59 06:59 Intake Total 400 1020 Balance 400 1020 Weight 58.5 kg - PIH/Pre-Eclampsia DTR's: 2 + Clonus: Negative Headache: Absent Epigastric Pain: No Visual Changes: No - Maternal Morbidity 59. Maternal Morbidity (serious complications experinced by the mother associated with labor and delivery: None of the above - Lochia Lochia Amount: Scant < 10 ml Lochia Color: Rubra/Red - Abdomen Description: Soft Hernia Present: No Bowel Sounds: Normoactive Flatus Presence: Present Stool: Yes Fundal Description: Firm Fundal Height: u/3 - u/4 Objective-Diagnostic Laboratory: 12/01/19 07:43 Assessment and Plan(PN) - Time Spent with Patient Time with patient: 15-25 minutes Medications reviewed and adjusted accordingly: Yes - Disposition Anticipated Discharge Disposition: Home, Self Care Anticipated Discharge Timeframe: within 24 hours
--- NOTE | 2019-12-02 09:29 | PDOC DISCHARGE SUMMARY ---
Impression - Admit/DC Date/PCP Admission Date/Primary Care Provider: 11/30/19 09:53 Discharge Date: 12/02/19 - Discharge Diagnosis (1) Is this a current diagnosis for this admission?: Yes (2) Vaginal delivery Is this a current diagnosis for this admission?: Yes - Additional Information Resuscitation Status: Full Code Discharge Diet: Regular Discharge Activity: Activity As Tolerated, Balance Activity w/Rest, Pelvic Rest, Slowly Increase Activity, No tub bath Referrals: ABDON REYES MD [ACTIVE PROVISIONAL STAFF] - Home Medications: Vit,Calc76/Iron/Folic [Prenatabs Rx Tablet] 1 tab PO DAILY 08/07/19 HPI Gestational Age: 38.3 wks Reason(s) for Admission: Onset of Labor Procedures: Ultrasound Intrapartum Procedure(s): Spontaneous Vaginal Delivery Hospital Course 59. Maternal Morbidity (serious complications experinced by the mother associ ated with labor and delivery: None of the above Results Laboratory Results: WBC 15.3 10^3/uL (4.0-10.5) H 12/01/19 07:43 RBC 4.03 10^6/uL (3.72-5.28) 12/01/19 07:43 Hgb 12.1 g/dL (12.0-15.5) 12/01/19 07:43 Hct 36.2 % (36.0-47.0) 12/01/19 07:43 MCV 90 fl (80-97) 12/01/19 07:43 MCH 30.0 pg (27.0-33.4) 12/01/19 07:43 MCHC 33.4 g/dL (32.0-36.0) 12/01/19 07:43 RDW 15.6 % (11.5-14.0) H 12/01/19 07:43 Plt Count 241 10^3/uL (150-450) 12/01/19 07:43 Lymph % (Auto) 32.3 % (13-45) 11/30/19 10:12 Toombs % (Auto) 7.7 % (3-13) 11/30/19 10:12 Eos % (Auto) 0.2 % (0-6) 11/30/19 10:12 Baso % (Auto) 0.8 % (0-2) 11/30/19 10:12 Absolute Neuts (auto) 7.1 10^3/uL (1.7-8.2) 11/30/19 10:12 Absolute Lymphs (auto) 3.9 10^3/uL (0.5-4.7) 11/30/19 10:12 Absolute Monos (auto) 0.9 10^3/uL (0.1-1.4) 11/30/19 10:12 Absolute Eos (auto) 0.0 10^3/uL (0.0-0.6) 11/30/19 10:12 Absolute Basos (auto) 0.1 10^3/uL (0.0-0.2) 11/30/19 10:12 Seg Neutrophils % 59.0 % (42-78) 11/30/19 10:12 Urine Color YELLOW 11/30/19 08:35 Urine Appearance SLIGHTLY-CLOUDY 11/30/19 08:35 Urine pH 6.0 (5.0-9.0) 11/30/19 08:35 Ur Specific [place] 1.015 11/30/19 08:35 Urine Protein NEGATIVE mg/dL (NEGATIVE) 11/30/19 08:35 Urine Glucose (UA) NEGATIVE mg/dL (NEGATIVE) 11/30/19 08:35 Urine Ketones NEGATIVE mg/dL (NEGATIVE) 11/30/19 08:35 Urine Blood SMALL (NEGATIVE) H 11/30/19 08:35 Urine Nitrite NEGATIVE (NEGATIVE) 11/30/19 08:35 Urine Bilirubin NEGATIVE (NEGATIVE) 11/30/19 08:35 Urine Urobilinogen NEGATIVE mg/dL (<2.0) 11/30/19 08:35 Ur Leukocyte Esterase SMALL (NEGATIVE) H 11/30/19 08:35 Urine Ascorbic Acid NEGATIVE (NEGATIVE) 11/30/19 08:35 Membranes Rupture POSITIVE (NEGATIVE) H 11/30/19 08:35 Urine Opiates Screen NEGATIVE 11/30/19 08:35 Urine Methadone Screen NEGATIVE 11/30/19 08:35 Ur Barbiturates Screen NEGATIVE 11/30/19 08:35 Ur Phencyclidine Scrn NEGATIVE 11/30/19 08:35 Ur Amphetamines Screen NEGATIVE 11/30/19 08:35 U Benzodiazepines Scrn NEGATIVE 11/30/19 08:35 Urine Cocaine Screen NEGATIVE 11/30/19 08:35 U Marijuana (THC) Screen NEGATIVE 11/30/19 08:35 RPR NONREACTIVE (NONREACTIVE) 11/30/19 10:12 Blood Type A POSITIVE 11/30/19 10:12 Antibody Screen NEGATIVE 11/30/19 10:12 Plan Plan of Treatment: Follow up at [facility] in 4 wks or prn. Time Spent: Less than 30 Minutes
[2019-12-02] MEDS: SENNOSIDES/DOCUSATE 8.6-50 MG 1 EACH TABLET PO SCH (10:54)
[2019-12-02] MEDS: FERROUS SULFATE 325 MG TABLET PO SCH (10:55)
[2019-12-02] MEDS: PRENATAL VITAMIN W DHA CAPSULE PO SCH (10:55)
[2019-12-02] MEDS: DOCUSATE SODIUM 100 MG CAPSULE PO SCH (10:55)
[2019-12-02] MEDS: FAMOTIDINE 20 MG TABLET PO SCH (10:55)
== END 2019-12-02 13:30 | disposition home or self-care (01) | DRG 807 ==
LOC: LC 09:29 → LR 09:53 → 2S 13:22
PROVIDERS: ADMIT Obstetrics & Gynecology; ATTEND Obstetrics & Gynecology
PROC: 10E0XZZ Delivery of Products of Conception, External Approach (ICD-10-PCS; principal; 2019-11-30)
DX: O99.824 Streptococcus B carrier state complicating childbirth (principal); Z37.0 Single live birth; O62.3 Precipitate labor; Z3A.38 38 weeks gestation of pregnancy
CPT/HCPCS: 36415; 80307; 81005; 84112; 85025; 85027; 86592; 86850; 86900; 86901; 94760; J2590; J3490